=== PATIENT | male | born 1940 | race Caucasian/White ===

== ENCOUNTER → 2016-07-13 | Outpatient (CLI) | payer MEDICARE, OTHER ==
[~2016-07-13] MED LIST: BACTROBAN22 GM TOP; BYSTOLIC5 MG PO; LOTREL 5-40 MG1 EACH PO; MULTAQ400 MG PO; OXYCODONE HCL5 MG PO; PRADAXA150 MG PO; SENNA-S TABLET1 EACH PO; TYLENOL325 MG PO; ULTRAM50 MG PO; ZOCOR20 MG PO
== END | disposition short-term general hospital (02) ==
LOC: CLCARD 09:55
DX: I48.0 Paroxysmal atrial fibrillation (principal); I10 Essential (primary) hypertension; E78.5 Hyperlipidemia, unspecified; R60.9 Edema, unspecified; E66.3 Overweight; I83.90 Asymptomatic varicose veins of unspecified lower extremity